=== PATIENT | male | born 1980 ===

== ENCOUNTER 2022-09-22 19:32 | Inpatient (IN) | payer SELFPAY ==
[2022-09-22] MEDS ORDERED: Sodium Chloride 0.9% 2.5 ML Syringe FLUSH PRN (19:40)
[2022-09-22] MEDS ORDERED: Sodium Chloride 0.9% 10 ML Syringe FLUSH PRN (19:40)
[2022-09-22] MEDS ORDERED: Diphtheria,Pertussis(Acell),Tetanus Vaccine 0.5 ML Syringe IM ONE (19:41)
[2022-09-22 20:01] LABS: POTASSIUM,K 3.9 mmol/L (3.5-5.1)
[2022-09-22 20:48] LABS: CORONAVIRUS COVID-19 NAA NEGATIVE (NEGATIVE); INFLUENZA A NAA NEGATIVE (NEGATIVE); INFLUENZA B NAA NEGATIVE (NEGATIVE)
[2022-09-22] MEDS ORDERED: Octyl 2-Cyanoacrylate 1 g/1 mL 1 APPLIC PEN TOP ONE ×3 (21:43→22:37)
[2022-09-22] MEDS ORDERED: LORazepam 2 MG/ML SDV IVPUSH ONE (21:46)
[2022-09-22] MEDS ORDERED: Sodium Chloride 0.9% 1,000 ML IV ONE (21:47)
[2022-09-22] MEDS ORDERED: Ondansetron 4 MG Tab.DIS PO PRN (22:21)
[2022-09-22] MEDS ORDERED: PHENOBARBITAL SODIUM IV ONE (22:21)
[2022-09-22] MEDS ORDERED: SODIUM CHLORIDE 0.9% IV ONE (22:21)
[2022-09-22] MEDS ORDERED: LORazepam 2 MG/ML SDV IVPUSH PRN (22:29)
[2022-09-22] MEDS ORDERED: Octyl 2-Cyanoacrylate 1 g/1 mL 1 APPLIC PEN ONE (22:36)
[2022-09-22] MEDS: Sodium Chloride 0.9% 1,000 ML IV SCH (23:21)
[2022-09-22] MEDS ORDERED: PHENobarbital Sodium 130 MG/ML SDV ONE (23:40)
[2022-09-23 06:48] LABS: CARBON DIOXIDE,CO2 26.7 mmol/L (21.0-32.0); POTASSIUM,K 3.9 mmol/L (3.5-5.1)
[2022-09-23] MEDS: Sodium Chloride 0.9% 1,000 ML IV SCH ×2 (08:23→19:05)
[2022-09-23] MEDS ORDERED: Pantoprazole 40 MG in Sodium Chloride 0.9% 10 ML IVPUSH SCH (09:00)
[2022-09-23] MEDS ORDERED: Thiamine 500 MG in Sodium Chloride 0.9% 250 ML IV SCH ×4 (09:00)
[2022-09-23] MEDS ORDERED: Sodium Chloride 0.9% 2.5 ML Syringe FLUSH PRN ×2 (11:20→20:38)
[2022-09-23] MEDS ORDERED: Sodium Chloride 0.9% 10 ML Syringe FLUSH PRN ×2 (11:20→20:38)
[2022-09-23] MEDS: PHENobarbital 32.4 MG Tab PO SCH ×2 (11:52→20:00)
[2022-09-23] MEDS ORDERED: Thiamine 100 MG Tab PO SCH (21:00)
[2022-09-23] MEDS ORDERED: Enoxaparin 40 MG/0.4 ML Syringe SUBCUT SCH (22:30)
[2022-09-24] MEDS ORDERED: Pantoprazole 40 MG Tab.CR PO SCH (07:30)
== END 2022-09-23 23:30 | disposition left against medical advice (07) | DRG 894 ==
LOC: MW.ED 19:32 → MW.MS 22:28 → OBSVTOIN 09-23 11:53 → MERGE 09-23 11:53 → MW.MS 09-23 11:54
PROVIDERS: ADMIT Pediatrics; ATTEND Pediatrics
DX: F10.239 Alcohol dependence with withdrawal, unspecified (principal); D73.1 Hypersplenism; G40.409 Other generalized epilepsy and epileptic syndromes, not intractable, without status epilepticus; R16.0 Hepatomegaly, not elsewhere classified; K74.60 Unspecified cirrhosis of liver; S09.90XA Unspecified injury of head, initial encounter; W18.30XA Fall on same level, unspecified, initial encounter; Y92.89 Other specified places as the place of occurrence of the external cause; Z79.899 Other long term (current) drug therapy
CPT/HCPCS: 0240U; 12011; 36415; 70450; 70450-26; 70551; 70551-26; 71045; 71045-26; 72125; 72125-26; 76700; 76700-26; 80053; 80184; 80305-QW; 80307; 81001; 82150; 83735; 85025; 85610; 85730; 90471; 90715; 93005; 93010; 96361; 96374; 99222; 99239; 99285; 99285-25; A9270-GY; C9113; J1650; J2060; J2560; J3411; J3490; J7030; J7050